=== PATIENT | male | born 1940 | race Caucasian/White ===

== ENCOUNTER 2016-07-04 10:19 | Emergency (ER) | payer OTHER ==
[2016-07-04 10:11] LABS: BASOPHILS 0.4 %; BASOPHILS ABSOLUTE 0.04 10/3/uL (0.0-0.16); EOSINOPHILS 1.6 %; EOSINOPHILS ABSOLUTE 0.15 10/3/uL (0.0-0.53); ER CBC TAT 0 Hrs 05 Mins; HEMATOCRIT 36.3 % (40.0-51.0); IMMATURE GRANULOCYTES 0.2 %; IMMATURE GRANULOCYTES ABSOLUTE 0.02 10/3/uL (0.0-0.11); LYMPHOCYTES 18.8 %; LYMPHOCYTES ABSOLUTE 1.81 10/3/uL (0.67-4.30); MEAN CORPUS HGB CONC 33.1 g/dL (32.0-36.0); MEAN CORPUSCULAR HEMOGLOB 26.3 pg (26.0-34.0); MEAN CORPUSCULAR VOLUME 79.6 fL (80-100); MEAN PLATELET VOLUME 8.4 fL (9.2-13.0); MONOCYTES 7.2 %; MONOCYTES ABSOLUTE 0.69 10/3/uL (0.21-1.20); NEUTROPHILS 71.8 %; PLATELET COUNT 400 10/3/uL (150-400); RBC DISTRIBUTION WIDTH 14.2 % (12.0-16.0); RED CELL COUNT 4.56 10/6/uL (4.7-6.1); WHITE BLOOD CELLS 9.6 10/3/uL (4.5-10.5)
[2016-07-04 10:12] LABS: MANUAL DIFF NO %
[2016-07-04 10:23] LABS: A/G RATIO 0.7 (0.7-1.9); ALKALINE PHOSPHATASE 108 U/L (45-117); CHLORIDE, SERUM 105 MMOL/L (96-112); CO2 (CARBON DIOXIDE) 25 MMOL/L (24-34); CREATININE 1.63 MG/DL (0.70-1.30); GFR AFRICAN AMERICAN 46 ML/MIN (>=60); GFR NON AFRICAN AMERICAN 40 ML/MIN (>=60); GLOBULIN 4.3 G/DL (2.5-4.1); POTASSIUM, SERUM 4.1 MMOL/L (3.5-5.3); SGOT(AST) 9 U/L (5-40); SGPT(ALT) 14 U/L (5-65); SODIUM, SERUM 140 MMOL/L (135-148); TOTAL BILIRUBIN 0.4 MG/DL (0-1.2); TOTAL PROTEIN 7.3 G/DL (6.0-8.5)
[2016-07-04 10:24] LABS: BUN (BLOOD UREA NITROGEN) 28 MG/DL (6-23); CALCIUM, SERUM 9.5 MG/DL (8.5-10.4); GLUCOSE, SERUM 219 MG/DL (60-99)
== END 2016-07-04 13:07 | disposition home or self-care (01) ==
LOC: ER 10:19
PROVIDERS: Emergency Medicine
DX: H66.91 Otitis media, unspecified, right ear (principal); I10 Essential (primary) hypertension; E11.9 Type 2 diabetes mellitus without complications; Z95.1 Presence of aortocoronary bypass graft
CPT/HCPCS: 70491; 80053; 85025; 96374; 99284; J0690; Q9967